=== PATIENT | male | born 1980 | race African-American/Black ===

== ENCOUNTER → 2016-12-03 | Outpatient (CLI) | payer OTHER ==
--- NOTE | 2016-12-03 18:40 | REP ---
RIGHT KNEE SERIES, FIVE VIEWS: HISTORY: Right knee pain. FINDINGS: Five views of the right knee demonstrate overall normal mineralization. There is no evidence of joint effusion, bony erosive change or joint space narrowing. IMPRESSION: No acute bony abnormality. Signed by Frank Ovalles MD 12/03/2016 06:59 P
== END ==
LOC: M RAD 09:33
PROVIDERS: ATTEND Surgery
DX: M25.561 Pain in right knee (principal)

== ENCOUNTER → 2018-02-18 | Outpatient (CLI) | payer OTHER | LOC: M RAD 09:38 | DX: M54.5 Low back pain (principal) | CPT/HCPCS: 72110 ==